=== PATIENT | female | born 1940 | race Asian ===

== ENCOUNTER 2017-03-28 06:11 | Emergency (ER) | payer OTHER ==
[2017-03-28 06:52] VITALS: BP 157/72
== END 2017-03-28 06:52 | disposition home or self-care (01) ==
LOC: ED 06:11
DX: B02.9 Zoster without complications (principal); I10 Essential (primary) hypertension; E78.00 Pure hypercholesterolemia, unspecified; M54.2 Cervicalgia; Z88.1 Allergy status to other antibiotic agents

== ENCOUNTER → 2017-10-02 | Outpatient (CLI) | payer OTHER | END | disposition home or self-care (01) | LOC: US 10:45 | PROC: BT43ZZZ Ultrasonography of Bilateral Kidneys (ICD-10-PCS; principal; 2017-10-02) | DX: R31.9 Hematuria, unspecified (principal) ==

== ENCOUNTER → 2018-05-28 | Outpatient (CLI) | payer OTHER | END | disposition home or self-care (01) | LOC: RD 10:23 | DX: R07.9 Chest pain, unspecified (principal) ==